=== PATIENT | male | born 1960 | race Caucasian/White ===

== ENCOUNTER 2017-11-22 09:04 | Day surgery (SDC) | payer OTHER ==
[~2017-11-22 09:04] MED LIST: Buffered Lidocaine 0.9% SYRIN* 5 ML/SYR SYRINGE INTRADERM ONE; Dexamethasone IV* 4 MG/ML 1 ML (4 MG) IV SLOW PU ONE; Famotidine IV* 10 MG/ML 2 ML (20 mg) IV ONE
[2017-11-22] MEDS ORDERED: ceFAZolin 2 GM PREMIX (*) 2 GM/50 ML BAG IVPB ONE (09:15)
[2017-11-22] MEDS ORDERED: Buffered Lidocaine 0.9% SYRIN* 5 ML/SYR SYRINGE ONE (09:15)
[2017-11-22] MEDS ORDERED: Dexamethasone IV* 4 MG/ML 1 ML (4 MG) ONE (09:22)
[2017-11-22] MEDS ORDERED: Famotidine IV* 10 MG/ML 2 ML (20 mg) ONE (09:22)
[2017-11-22] MEDS ORDERED: Midazolam* 1 MG/ML 2 ML VIAL (2 MG) ONE (09:28)
[2017-11-22] MEDS ORDERED: Propofol* 10 MG/ML 20 ML BTL IV PUSH ONE (09:28)
[2017-11-22] MEDS ORDERED: fentaNYL* 50 MCG/ML 2 ML VIAL (100 MCG VIAL) ONE (09:28)
[2017-11-22] MEDS ORDERED: Bupivacaine 0.25% SDV* 30 ML ONE (09:47)
[2017-11-22] MEDS ORDERED: fentaNYL* 50 MCG/ML 2 ML VIAL (100 MCG VIAL) IV PRN (09:50)
[2017-11-22] MEDS ORDERED: Naloxone* 0.4 MG/ML 1 ML VIAL IV PRN (09:50)
[2017-11-22] MEDS ORDERED: Ondansetron ODT TAB* 4 MG PO PRN (09:50)
[2017-11-22] MEDS ORDERED: Metoclopramide IV* 5 MG/ML 2 ML VIAL ONE (10:46)
--- NOTE | 2017-11-22 11:54 | OP ---
Operative Report - Blank - Operative Report Date of Operation: 11/22/17 Note: DATE OF OPERATION: 11/22/2017 - [facility] DATE OF : 1960 SURGEON: Lupillo Farr MD SPARKER AND PATCHER: SANDRA Alegria ANESTHESIOLOGIST: Dr. Murray. ANESTHESIA: General. PRE-OP DIAGNOSIS: Left cubital tunnel syndrome. POST-OP DIAGNOSIS: Left cubital tunnel syndrome. OPERATIVE PROCEDURE: Left cubital tunnel release with anterior transposition. 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 He may have some compression at the wrist too but he uses crutches to assist in his ambulation and can not have a wound on the palm he tells me. We talked about risks and benefits including a risk of nerve injury. He wanted to proceed. ESTIMATED BLOOD LOSS: 2 mL. COMPLICATIONS: None. FINDINGS: As expected. DESCRIPTION OF PROCEDURE: Nelson was seen in the preoperative holding area. The correct side, site and the procedure were identified. We came back to the operating room. I anesthetized the operative area with 0.25% plain Marcaine. The arm was prepped and draped in usual fashion. The arm was exsanguinated with the Esmarch and the tourniquet was inflated to 250 mmHg. I made a curvilinear incision centered over Osbornes ligament. Dissection was carried down through the subcutaneous tissue taking care to identify and protect the medial antebrachial cutaneous nerve throughout the case. I began the decompression just proximal to Osbornes ligament. I released the fascia overlying the nerve proximally up past the arcade of struthers. I then released Osbornes ligament and then superficial FCU fascia. I split the two head of the FCU and released the subfascial layer in its entirety preserving the motor branches. I then checked the decompression. The elbow was flexed and extended. There was subluxation of the nerve so I did need to transpose the nerve. I elevated a full thickness flap off the flexor pronator fascia. The medial intermuscular septum was excised. The leading edge of the FCU tendon was excised. Step-cut type fascial flaps were raised off the flexor pronator fascia. The nerve was released of its soft tissue attachments taking care to preserve the motor branches to the FCU. The nerve was transposed onto the muscular bed. The two ends of the fascial flaps were sewn end to end with 4-0 ethibond suture to keep the nerve in the transposed position. Hemostasis was obtained with bipolar and bovie cautery. The subcutaneous tissue was reapproximated with 3-0 vicryl suture. The skin was closed with 4-0 monocryl and steri strips. Marcaine 0.25% was infiltrated in the operative area. The wound was dressed with a plaster long -arm splint and the patient was woken up and taken to recovery in stable condition.
[2017-11-22 12:24] VITALS: BP 98/77
== END 2017-11-22 12:24 | disposition home or self-care (01) ==
LOC: OREAST 09:04
PROVIDERS: ATTEND Orthopaedic Surgery Hand Surgery
DX: G56.22 Lesion of ulnar nerve, left upper limb (principal); F17.210 Nicotine dependence, cigarettes, uncomplicated; J44.9 Chronic obstructive pulmonary disease, unspecified; F43.10 Post-traumatic stress disorder, unspecified; F41.9 Anxiety disorder, unspecified; G83.4 Cauda equina syndrome; I73.9 Peripheral vascular disease, unspecified; I71.4 Abdominal aortic aneurysm, without rupture
CPT/HCPCS: J0690; J1100; J2250; J2704; J2765; J3010